=== PATIENT | female | born 1985 | race Two or more races ===

== ENCOUNTER → 2019-10-22 | Outpatient (CLI) | payer OTHER | END | disposition home or self-care (01) | LOC: PRENATAL 08:54 | DX: O36.80X1 Pregnancy with inconclusive fetal viability, fetus 1 (principal); O26.852 Spotting complicating pregnancy, second trimester; O09.512 Supervision of elderly primigravida, second trimester; O34.42 Maternal care for other abnormalities of cervix, second trimester ==

== ENCOUNTER → 2020-02-07 | Outpatient (CLI) | payer OTHER | END | disposition home or self-care (01) | LOC: PRENATAL 15:30 | PROVIDERS: ATTEND Obstetrics & Gynecology | DX: O26.843 Uterine size-date discrepancy, third trimester (principal); O24.313 Unspecified pre-existing diabetes mellitus in pregnancy, third trimester; O10.013 Pre-existing essential hypertension complicating pregnancy, third trimester; O09.513 Supervision of elderly primigravida, third trimester ==

== ENCOUNTER 2020-02-09 15:03 | Inpatient (IN) | payer OTHER | END 2020-02-12 16:08 | disposition home or self-care (01) | DRG 786 | LOC: OBS/DEL 15:03 → LDR 16:18 → O/R 17:02 → OB/GYN 18:42 | PROVIDERS: ADMIT Obstetrics & Gynecology | PROC: 10D00Z1 Extraction of Products of Conception, Low, Open Approach (ICD-10-PCS; principal; 2020-02-09) | PROC: 4A1HXCZ Monitoring of Products of Conception, Cardiac Rate, External Approach (ICD-10-PCS; 2020-02-09) | DX: O32.1XX1 Maternal care for breech presentation, fetus 1 (principal); O60.14X1 Preterm labor third trimester with preterm delivery third trimester, fetus 1; O26.873 Cervical shortening, third trimester; Z3A.32 32 weeks gestation of pregnancy; Z37.0 Single live birth ==